=== PATIENT | female | born 1935 | race Caucasian/White ===

== ENCOUNTER → 2017-11-01 | Day surgery (SDC) | payer MEDICARE ==
[2017-10-30 12:27] LABS: BASOPHILS # (AUTO) 0.1 (0.0-0.1); BASOPHILS % 0.7 % (0.0-1.0); EOSINOPHILS # (AUTO) 0.4 (0.0-0.4); EOSINOPHILS % 3.5 % (0.0-6.0); HEMATOCRIT 36.8 % (34.2-44.1); HEMOGLOBIN 11.7 g/dL (12.0-16.0); LYMPHOCYTES # (AUTO) 2.9 (1.0-3.2); LYMPHOCYTES % 26.1 % (18.0-39.1); MEAN CORPUSCULAR HEMOGLOBIN 33.1 pg (28-32); MEAN CORPUSCULAR HGB CONC 31.8 g/dL (31-35); MEAN CORPUSCULAR VOLUME 104.2 fL (81-99); MONOCYTES # (AUTO) 0.9 (0.2-0.8); MONOCYTES % 7.7 % (4.4-11.3); NEUTROPHILS # (AUTO) 6.8 (2.1-6.9); NEUTROPHILS % 61.5 % (38.7-80.0); PLATELET COUNT 231 x10e3/uL (140-360); RED BLOOD COUNT 3.53 x10e6/uL (3.6-5.1); RED CELL DISTRIBUTION WIDTH 13.9 % (11.7-14.4)
[~2017-11-01] MED LIST: ATENOLOL25 MG PO; ATENOLOL50 MG PO; CAL/MAG/ZINC PO; CALCIUM MAGNES1 EAC1 PO; CLOTRIMAZOLE-BE15 GM TOP; CYCLOBENZAPRINE10 MG PO; FENTANYL CITRATE/PF 100MCG/2 ML INJ ONE; GABAPENTIN300 MG PO; HAIR, SKIN & N1 EAC1 PO; HYDROCODON-ACE1 EAC5 PO; LANSOPRAZOLE30 MG PO; NORCO 10-325 T1 EACH PO; PANTOPRAZOLE SO40 MG PO; PRAVASTATIN SOD40 MG PO; PROPOFOL IV EMULSION 10 MG/ML 20 ML VIAL ONE
--- OUTSIDE RECORDS SUMMARY | 2017-11-01 06:19 | XMS REPORT | Clinical Summary ---
Author Author [facility] Address Unknown Phone Unavailable Care Team Providers Care Criminal Lawyer Name Role Phone Pramod Schofield MD PCP Allergies Active Allergy Reactions Severity Noted Date Comments Penicillins Hives 02/14/2017 Current Medications Prescription Sig. Disp. Refills Start End Date Status Date azithromycin (ZITHROMAX) Take first 2 tablets 6 tablet 0 02/15/20 250 MG tablet together, then 1 every 17 17 day until finished. Active Problems Not on file Encounters Date Type Specialty Care Team Description 02/14/2017 Emergency Emergency Medicine Garrett Sebastian MD Mold exposure (Primary Dx); Upper respiratory disease after 10/31/2016 Social History Tobacco Use Types Packs/Day Years Used Date Never Smoker Alcohol Use Drinks/Week oz/Week Comments No Sex Assigned at Date Recorded Not on file Last Filed Vital Signs Vital Sign Reading Time Taken Blood Pressure 108/61 02/14/2017 2:30 PM CDT Pulse 70 02/14/2017 2:30 PM CDT Temperature 37 C (98.6 F) 02/14/2017 2:30 PM CDT Respiratory Rate 16 02/14/2017 2:30 PM CDT Oxygen Saturation 100% 02/14/2017 2:30 PM CDT Inhaled Oxygen - - Concentration Weight 54.4 kg (120 lb) 02/14/2017 10:29 AM CDT Height 162.6 cm (5' 4") 02/14/2017 10:29 AM CDT Body Mass Index 20.6 02/14/2017 10:29 AM CDT Plan of Treatment Health Maintenance Due Date Last Done Comments SHINGRIX VACCINE (#1) 1987 ZOSTER VACCINE 1997 PNEUMOCOCCAL 2002 POLYSACCHARIDE VACCINE AGE 65 AND OVER PNEUMOCOCCAL-13 2002 INFLUENZA VACCINE 01/09/2018 Results * CT Cervical Spine Wo Contrast (02/14/2017 1:54 PM) [facility] [address] [place] [address] Narrative EXAMINATION: CT CERVICAL SPINE WO CONTRAST CLINICAL HISTORY: neck pain. Head trauma. COMPARISON:None TECHNIQUE: Axial noncontrast enhanced images of the cervical spine were obtained with coronal and sagittal reconstructed algorithms. CT imaging was performed with iterative reconstruction techniques and/or automated exposure control to reduce radiation dose. FINDINGS: No fracture or acute subluxation is identified. The paraspinous soft tissues are unremarkable. C2-3: Small central disc protrusion. C3-4: Prominent loss of disc height. Endplate irregularity posteriorly. Mild uncovertebral hypertrophy. Disc bulge. Ligamentum flavum redundancy. Severe canal stenosis measuring 5-6 mm AP. Mild left foraminal stenosis. C4-5: Dorsal endplate spurring. Uncovertebral hypertrophy. Severe bilateral foraminal stenosis. Mild canal stenosis. C5-6: Small central disc protrusion. Dorsal endplate spurring. Uncovertebral hypertrophy. Mild bilateral foraminal stenosis. Mild canal stenosis. C6-7: Marked loss of disc height, most pronounced posteriorly. Endplate sclerosis. Dorsal endplate spurring. Uncovertebral hypertrophy. Moderate left foraminal stenosis. Moderate canal stenosis. C7-T1: Mild grade 1 anterolisthesis. Mild bilateral foraminal stenosis. No incidental thyroid lesion is identified. IMPRESSION: No acute abnormality of the cervical spine is identified. Prominent cervical spondylosis. Multifactorial severe canal stenosis at C3-4. [facility]-[id number] Procedure Note Interface, Radiology Results Incoming - 02/14/2017 2:06 PM CDT EXAMINATION: CT CERVICAL SPINE WO CONTRAST CLINICAL HISTORY: neck pain. Head trauma. COMPARISON: None TECHNIQUE: Axial noncontrast enhanced images of the cervical spine were obtained with coronal and sagittal reconstructed algorithms. CT imaging was performed with iterative reconstruction techniques and/or automated exposure control to reduce radiation dose. FINDINGS: No fracture or acute subluxation is identified. The paraspinous soft tissues are unremarkable. C2-3: Small central disc protrusion. C3-4: Prominent loss of disc height. Endplate irregularity posteriorly. Mild uncovertebral hypertrophy. Disc bulge. Ligamentum flavum redundancy. Severe canal stenosis measuring 5-6 mm AP. Mild left foraminal stenosis. C4-5: Dorsal endplate spurring. Uncovertebral hypertrophy. Severe bilateral foraminal stenosis. Mild canal stenosis. C5-6: Small central disc protrusion. Dorsal endplate spurring. Uncovertebral hypertrophy. Mild bilateral foraminal stenosis. Mild canal stenosis. C6-7: Marked loss of disc height, most pronounced posteriorly. Endplate sclerosis. Dorsal endplate spurring. Uncovertebral hypertrophy. Moderate left foraminal stenosis. Moderate canal stenosis. C7-T1: Mild grade 1 anterolisthesis. Mild bilateral foraminal stenosis. No incidental thyroid lesion is identified. IMPRESSION: No acute abnormality of the cervical spine is identified. Prominent cervical spondylosis. Multifactorial severe canal stenosis at C3-4. [facility]-[id number] * CT Head Wo Contrast (02/14/2017 1:53 PM) Specimen Performing Laboratory [address] [place] [address] Narrative EXAMINATION:CT HEAD WO CONTRAST CLINICAL HISTORY:head trauma COMPARISON:None. TECHNIQUE: CT imaging was performed with iterative reconstruction technique and/ or automated exposure control to reduce radiation dose. Findings: No intracranial hemorrhage, acute transcortical ischemia, extra-axial fluid collections or parenchymal mass lesions. No skull fractures or aggressive bony lesions. Intracranial vascular calcifications. Bilateral lens surgery. Visualized paranasal sinuses and mastoid air cells are clear. IMPRESSION: No acute intracranial abnormalities. [facility]-[id number] Procedure Note Hm Interface, Radiology Results Incoming - 02/14/2017 2:16 PM CDT EXAMINATION: CT HEAD WO CONTRAST CLINICAL HISTORY: head trauma COMPARISON: None. TECHNIQUE: CT imaging was performed with iterative reconstruction technique and/ or automated exposure control to reduce radiation dose. Findings: No intracranial hemorrhage, acute transcortical ischemia, extra-axial fluid collections or parenchymal mass lesions. No skull fractures or aggressive bony lesions. Intracranial vascular calcifications. Bilateral lens surgery. Visualized paranasal sinuses and mastoid air cells are clear. IMPRESSION: No acute intracranial abnormalities. [facility]-[id number] * XR Chest 1 Vw (02/14/2017 12:27 PM) Specimen Performing Laboratory [address] [place] [address] Narrative PROCEDURE:XR CHEST 1 VW CLINICAL HISTORY:Cough COMPARISON:None. TECHNIQUE: A single view of the chest was performed in the AP upright projection. FINDINGS: No active pleural, parenchymal, or mediastinal abnormality is noted. Noacute abnormality is demonstrated of the visualized bones of the thorax. IMPRESSION: Noacute abnormality in the chest. [id number] Procedure Note [facility], Radiology Results Incoming - 02/14/2017 12:36 PM CDT PROCEDURE: XR CHEST 1 VW CLINICAL HISTORY: Cough COMPARISON: None. TECHNIQUE: A single view of the chest was performed in the AP upright projection. FINDINGS: No active pleural, parenchymal, or mediastinal abnormality is noted. No acute abnormality is demonstrated of the visualized bones of the thorax. IMPRESSION: No acute abnormality in the chest. [id number] * Estimated GFR (02/14/2017 11:50 AM) Component Value Ref Range GFR Non Af Amer 43 (A) mL/min/1.73 m2 GFR Af Amer 52 (A) mL/min/1.73 m2 Comment: Chronic kidney disease: <60 mL/min/1.73m2 Kidney failure: <15 mL/min/1.73m2 The estimated GFR is calculated from the IDMS-traceable Modification of Diet in Renal Disease Equation. The accuracy of the calculation is poor when the creatinine is normal. Calculated values >90 mL/min/1.73m2 are not reported. This equation has not been validated in children (<18 years), women, the elderly (>70 years), or ethnic groups other than Caucasians and Americans. Specimen Performing Laboratory Plasma specimen [facility] [address] [address] * Troponin (02/14/2017 11:50 AM) Component Value Ref Range Troponin <0.01 0.00 - 0.60 ng/mL Comment: 0.11 - 1.49 ng/ml May indicate increased risk of acute coronary syndrome. >=1.5 ng/ml Consistent with acute myocardial infarction. The diagnostic value of a single normal or non-diagnostic result is questionable. Serial samples at 2-6 hour intervals are required to rule out acute myocardial injury. Specimen Performing Laboratory Plasma specimen [facility] [place] [address] * Prothrombin time with INR (02/14/2017 11:50 AM) Component Value Ref Range Prothrombin time 12.8 12.0 - 15.0 sec INR 0.96 0.92 - 1.12 Comment: For patients on anticoagulant therapy, reference ranges below: Indication: INR Value Treatment of Venous Thrombosis, 2.0-3.0 pulmonary emboli, or prophylaxis of a venous thrombosis, or systemic emboli. High dose, high risk patients 3.0-4.5 with mechanical valves. NOTE: INR values over 3.0 are sometimes associated with gastrointestinal hemorrhage, especially values over 4.0. Specimen Performing Laboratory Blood [facility] [address] [place] [address] * CBC with platelet and differential (02/14/2017 11:50 AM) Component Value Ref Range WBC 7.1 4.2 - 11.0 k/uL RBC 3.19 (L) 4.04 - 5.86 m/uL HGB 10.7 (L) 11.5 - 15.3 g/dL HCT 34.2 34.0 - 45.0 % MCV 107.2 (H) 80.0 - 98.0 fL MCH 33.5 27.0 - 34.0 pg MCHC 31.3 (L) 31.5 - 36.5 g/dL RDW - SD 54.0 (H) 37.0 - 51.0 fL MPV 10.6 (H) 7.4 - 10.4 fL Platelet count 187 150 - 400 k/uL Nucleated RBC 0.00 /100 WBC Neutrophils 40.3 36.0 - 66.0 % Lymphocytes 45.4 (H) 24.0 - 44.0 % Monocytes 7.7 (H) 0.0 - 6.0 % Eosinophils 5.5 0.0 - 6.0 % Basophils 0.8 0.0 - 1.2 % Immature granulocytes 0.3 0.0 - 1.0 % Specimen Performing Laboratory Blood [facility] [address] [place] [address] * B natriuretic peptide (02/14/2017 11:50 AM) Component Value Ref Range BNP 63 0 - 100 pg/mL Specimen Performing Laboratory Blood [facility] [address] [place] [address] * Creatine kinase, total (CPK) (02/14/2017 11:50 AM) Component Value Ref Range Creatine kinase 35 (L) 61 - 224 U/L Specimen Performing Laboratory Plasma specimen [facility] [address] [place] [address] * Comprehensive metabolic panel (02/14/2017 11:50 AM) Component Value Ref Range Sodium 142 135 - 150 mEq/L Potassium 4.1 3.5 - 5.0 mEq/L Chloride 106 100 - 109 mEq/L CO2 30 24 - 32 mmol/L Anion gap 6 (L) 7 - 15 mEq/L Comment: Starting from September , anion gap calculation no longer incorporates potassium. Please note the change. BUN 17 7 - 18 mg/dL Creatinine 1.2 0.8 - 1.5 mg/dL Glucose 88 65 - 100 mg/dL Calcium 8.6 8.6 - 10.7 mg/dL Protein 6.5 6.3 - 8.2 g/dL Albumin 2.9 (L) 3.2 - 5.0 g/dL A/G ratio 0.8 0.7 - 3.8 Alkaline phosphatase 103 30 - 120 U/L AST 13 (L) 15 - 37 U/L ALT 13 (L) 30 - 65 U/L Total bilirubin 0.4 0.2 - 1.2 mg/dL Specimen Performing Laboratory Plasma specimen [facility] [address] [place] [address] [place] [address] * ECG 12 lead (02/14/2017 11:05 AM) Component Value Ref Range Ventricular rate 66 Atrial rate 375 QRSD interval 58 QT interval 386 QTC interval 404 QRS axis 1 -36 T wave axis 42 EKG impression Atrial fibrillation-Baseline artifact-Left axis deviation-Inferior infarct , age undetermined-Anterior infarct , age undetermined-Abnormal ECG-No previous ECGs available- Specimen Performing Laboratory [facility] [address] [place] [id number] after 10/31/2016 Insurance Payer Benefit Subscriber ID Type Phone Address Plan / Group [employer] xxxxxxxxxxx H[employer] HMO MCR ADV
--- OUTSIDE RECORDS SUMMARY | 2017-11-01 06:19 | XMS REPORT ---
Author Author [facility] Address Unknown Phone Unavailable Care Team Providers Care Wood Buffer Name Role Phone LORENE ADAN Unavailable Unavailable Problems This patient has no known problems. Allergies, Adverse Reactions, Alerts This patient has no known allergies or adverse reactions. Medications This patient has no known medications. Results Test Description Test Time Test Comments Text Results Atomic Results Result Comments CHEST SINGLE (NOT PORTABLE) [place] [address] Patient Name: BRAYDEN CAIN MR #: [id number] : 1935 Age/Sex: 82/F Req #: [id number] Adm Physician: Ordered by: LORENE ADAN MD Report #: [id number] Location: ER Room/Bed: Procedure: [id number] DX/CHEST SINGLE (NOT PORTABLE) Exam Date: 03/30/17 Exam Time: 1655 REPORT STATUS: Signed PROCEDURE: A single AP view of the chest. COMPARISON: None. INDICATIONS: CHEST PRESSURE/BURNING FINDINGS: Lines/tubes: None. Lungs: The lungs are well inflated and clear. There is no evidence of pneumonia or pulmonary edema. Pleura: There is no pleural effusion or pneumothorax. Heart and mediastinum: The heart and the mediastinum are unremarkable. Aorta is mildly tortuous. Bones: No acute bony abnormality. IMPRESSION: 1. No acute cardiopulmonary disease. Dictated by: Jayce Adler M.D. on 03/30/2017 at 17:46 Electronically approved by: Jayce Adler M.D. on 03/30/2017 at 17:46 Dictated By: JAYCE ADLER MD 47 Transcribed By: KEISHA on 03/30/171745 COPY TO: LORENE ADAN MD
== END | disposition home or self-care (01) ==
LOC: OR 06:16
PROVIDERS: ATTEND Internal Medicine Gastroenterology
DX: K22.2 Esophageal obstruction (principal); K21.0 Gastro-esophageal reflux disease with esophagitis; K44.9 Diaphragmatic hernia without obstruction or gangrene; K29.40 Chronic atrophic gastritis without bleeding; R13.10 Dysphagia, unspecified; K31.9 Disease of stomach and duodenum, unspecified; Z01.810 Encounter for preprocedural cardiovascular examination; Z01.812 Encounter for preprocedural laboratory examination; I12.9 Hypertensive chronic kidney disease with stage 1 through stage 4 chronic kidney disease, or unspecified chronic kidney disease; N18.3 Chronic kidney disease, stage 3 (moderate); E78.5 Hyperlipidemia, unspecified; M19.90 Unspecified osteoarthritis, unspecified site; Z88.1 Allergy status to other antibiotic agents; Z88.0 Allergy status to penicillin; Z88.2 Allergy status to sulfonamides
CPT/HCPCS: 36415; 43239; 85025; 88305; 88312; 93005